=== PATIENT | male | born 1985 | race Two or more races ===

== ENCOUNTER 2019-04-23 18:04 | Emergency (ER) | payer SELFPAY ==
[~2019-04-23] VITALS: Ht 175.3 cm; Wt 77.1 kg
[2019-04-23 18:28] VITALS: BP 126/85
[2019-04-23] MEDS ORDERED: DIPHTH,PERTUSS(ACELL),TET TOX 0.5 ML DISP.SYRIN. VAX IM ONE (18:45)
--- NOTE | 2019-04-23 19:03 | PHYS DOC ---
Past Medical History Past Medical History: No Pertinent History (MO KNAPP APRN) Past Surgical History: No Surgical History (MO KNAPP APRN) Alcohol Use: Occasionally Drug Use: None (MO KNAPP APRN) Adult General Chief Complaint Chief Complaint: LACERATION/AVULSION HPI HPI Patient is a 33 year old male who presents with [laceration to left wrist. Patient reports he was using a rotary surface grinder, working on a muffler, when the rotary surface grinder slipped and cut him in the left wrist. Reports episode occurred approximately one hour prior to coming to the ER. Patient reports some discomfort, is able to fully move rotate, flex, extend thumb, and wrist. States he does not know when his last tetanus vaccination was. Patient denies additional complaints or concerns, reports he was a little concerned over the laceration, and one 18 care.] (MO KNAPP APRN) Review of Systems Review of Systems Constitutional: Denies fever or chills [] Eyes: Denies change in visual acuity, redness, or eye pain [] HENT: Denies nasal congestion or sore throat [] Respiratory: Denies cough or shortness of breath [] Cardiovascular: No additional information not addressed in HPI [] GI: Denies abdominal pain, nausea, vomiting, bloody stools or diarrhea [] : Denies dysuria or hematuria [] Musculoskeletal: Denies back pain or joint pain [] Integument: Denies rash or skin lesions [] Neurologic: Denies headache, focal weakness or sensory changes [] Endocrine: Denies polyuria or polydipsia [] All other systems were reviewed and found to be within normal limits, except as documented in this note. (MO KNAPP APRN) Current Medications Current Medications Current Medications Medications (Trade) Dose Ordered Sig/Adele Start Time Stop Time Status Last Admin Dose Admin Diphtheria/ Tetanus/Acell Pertussis (Boostrix) 0.5 ml ONCE ONCE 04/23/19 18:45 04/23/19 18:46 DC 04/23/19 18:44 0.5 ML Lidocaine HCl (Lidocaine 1% 20ml Vial) 20 ml 1X ONCE 04/23/19 19:30 04/23/19 19:31 DC 04/23/19 19:04 20 ML (MICHAEL LIZAMA DO) Allergies Allergies Allergies Coded Allergies Type Severity Reaction Last Updated Verified No Known Drug Allergies 04/23/19 No (MICHAEL LIZAMA DO) Physical Exam Physical Exam Constitutional: Well developed, well nourished, no acute distress, non-toxic appearance. [] HENT: Normocephalic, atraumatic, bilateral external ears normal, oropharynx moist, no oral exudates, nose normal. [] Eyes: PERRLA, EOMI, conjunctiva normal, no discharge. [] Neck: Normal range of motion, no tenderness, supple, no stridor. [] Cardiovascular:Heart rate regular rhythm, no murmur [] Lungs & Thorax: Bilateral breath sounds clear to auscultation [] Abdomen: Bowel sounds normal, soft, no tenderness, no masses, no pulsatile masses. [] Skin: Warm, dry, no erythema, no rash. Proximally 2 cm laceration to proximal left thumb, transverse, mental active bleeding noted at this time. [] Back: No tenderness, no CVA tenderness. [] Extremities: No tenderness, no cyanosis, no clubbing, ROM intact, no edema. Full range of motion to left thumb[] Neurologic: Alert and oriented X 3, normal motor function, normal sensory function, no focal deficits noted. [] Psychologic: Affect normal, judgement normal, mood normal. [] (MO KNAPP APRN) Current Patient Data Vital Signs Vital Signs Date Time Temp Pulse Resp B/P (MAP) Pulse Ox O2 Delivery O2 Flow Rate FiO2 04/23/19 18:28 98.6 68 20 126/85 (99) 99 Room Air 98.6 (MICHAEL LIZAMA DO) EKG EKG [] (MO KNAPP APRN) Radiology/Procedures Radiology/Procedures [] (MO KNAPP APRN) Course & Med Decision Making Course & Med Decision Making Pertinent Labs and Imaging studies reviewed. (See chart for details) [] (MO KNAPP APRN) Dragon Disclaimer Dragon Disclaimer This electronic medical record was generated, in whole or in part, using a voice recognition dictation system. (MO KNAPP APRN) Departure Departure Impression: Primary Impression: Laceration of hand without complication, excluding fingers Additional Impression: Laceration of hand, left Disposition: 01 HOME, SELF-CARE Condition: GOOD Referrals: NO PCP (PCP) Patient Instructions: Laceration Care, Adult, [id number] Additional Instructions: Your sutures can come out in 10 days. You may come back here or go to your primary care provider. We updated your tetanus vaccination today Watch the wound for signs of infection - redness, pus, or severe discomfort. Laceration Repair Lac Repair Indication: [laceration] Procedure: The patient was placed in the appropriate position and anesthesia around the [laceration with 6 ml 1% lidocaine without epi] The area was then [CLEANSED with 100 ml normal saline]. The laceration was [closed with (5) simple interrupted sutures, 4/0 nylon. Well approximated. The wound area was then dressed with [gauze]. Total repaired wound length: 2.5 cm]. Other Items: [OTHER ITEMS] The patient tolerated the procedure [well]. Complications: [none]. (MO KNAPP APRN) Attending Signature Attending Signature I have reviewed the PA/HEEL GOUGER's note and plan of care. I was available for consultation as needed during the patient's visit in the emergency department. I agree with the clinical impression, plan, and disposition. (MICHAEL LIZAMA DO) Problem Qualifiers Primary Impression: Laceration of hand without complication, excluding fingers Encounter type: initial encounter Laterality: left Qualified Codes: S61.412A - Laceration without foreign body of left hand, initial encounter Additional Impression: Laceration of hand, left Encounter type: initial encounter Foreign body presence: without foreign body Qualified Codes: S61.412A - Laceration without foreign body of left hand, initial encounter MO KNAPP APRN April 23, 2019 19:03 MICHAEL LIZAMA DO Apr 28, 2019 06:18
[2019-04-23] MEDS ORDERED: LIDOCAINE 1% Multi-Dose 20 ML VIAL. INJ ONE (19:30)
== END 2019-04-23 19:46 | disposition home or self-care (01) ==
LOC: ER 18:04
DX: S61.512A Laceration without foreign body of left wrist, initial encounter (principal); W26.8XXA Contact with other sharp object(s), not elsewhere classified, initial encounter; Y93.89 Activity, other specified; Y92.89 Other specified places as the place of occurrence of the external cause; Y99.0 Civilian activity done for income or pay
CPT/HCPCS: 12001; 90471; 90715; 99283